=== PATIENT | male | born 1980 | race Caucasian/White ===

== ENCOUNTER 2020-02-10 07:05 | Day surgery (SDC) | payer MEDICAID, SELFPAY ==
[~2020-02-10] VITALS: Ht 170.2 cm; Wt 56.7 kg
[2020-02-10] MEDS ORDERED: HYDROmorphone 1 MG INJ. 1 MG/ML AMPUL IVP PRN ×2 (09:45)
[2020-02-10] MEDS ORDERED: MIDAZOLAM HCL 2 MG/2 ML VIAL (VERSED) IVP PRN (09:45)
[2020-02-10] MEDS ORDERED: MEPERIDINE HCL/PF 25 MG/ML DISP.SYRIN IVP PRN (09:45)
[2020-02-10] MEDS ORDERED: ONDANSETRON HCL 4 MG/2 ML VIAL IVP PRN (09:45)
[2020-02-10] MEDS ORDERED: METOCLOPRAMIDE HCL 10 MG/2 ML VIAL IVP PRN (09:45)
[2020-02-10] MEDS ORDERED: LR 1,000 ML IV SCH (09:45)
[2020-02-10] MEDS ORDERED: LR 1,000 ML IV.SOLN IV ONE (11:55)
[2020-02-10] MEDS ORDERED: LIDOCAINE/EPI 1% 1:100000 20 ML VIAL INJ ONE (11:55)
[2020-02-10] MEDS ORDERED: MIDAZOLAM HCL 5 MG/ML VIAL (VERSED) IV ONE (11:55)
[2020-02-10] MEDS ORDERED: DEXAMETHASONE SOD PHOSPHATE 4 MG/ML VIAL ONE (11:55)
[2020-02-10] MEDS ORDERED: OXYMETAZOLINE HCL 0.05% NASAL SPRAY NS ONE (11:55)
[2020-02-10] MEDS ORDERED: NS IRRIG SOLN 1000 ML IR ONE (11:55)
[2020-02-10] MEDS ORDERED: PROPOFOL 200MG/ 20ML VIAL (DIPRIVAN) IV ONE (11:55)
[2020-02-10] MEDS ORDERED: DESFLURANE 15 MIN GAS INH ONE (11:55)
[2020-02-10] MEDS ORDERED: ROCURONIUM BROMIDE 10 MG/ML (ZEMURON) ONE (11:55)
[2020-02-10] MEDS ORDERED: ONDANSETRON HCL 4 MG/2 ML VIAL ONE (11:55)
[2020-02-10] MEDS ORDERED: fentaNYL CITRATE/PF 100 MCG/2 ML AMP ONE (11:55)
[2020-02-10] MEDS ORDERED: SUGAMMADEX SODIUM 200 MG/2 ML VIAL IV ONE (11:55)
[2020-02-10] MEDS ORDERED: EPINEPHrine 1 MG/ML AMP ONE (11:55)
[2020-02-10] MEDS ORDERED: HYDROmorphone 1 MG INJ. 1 MG/ML AMPUL ONE (12:09)
[2020-02-10 14:32] VITALS: BP_SYST 138
== END 2020-02-10 14:20 | disposition home or self-care (01) ==
LOC: SMU 07:05 → SDS 07:05
PROVIDERS: ATTEND Otolaryngology
DX: J34.2 Deviated nasal septum (principal); J32.9 Chronic sinusitis, unspecified; D38.5 Neoplasm of uncertain behavior of other respiratory organs; R09.81 Nasal congestion; J30.1 Allergic rhinitis due to pollen; F32.9 Major depressive disorder, single episode, unspecified; G89.29 Other chronic pain; Z11.59 Encounter for screening for other viral diseases
CPT/HCPCS: 30140; 30520; 31254; 31256; 31287; 31296; 87070; 87075; 87101; 88305; 88311; C1726; C9399; C9803; J0171; J1100; J1170; J2250; J2405; J2704; J3010; J7120; U0003